=== PATIENT | female | born 1965 | race Caucasian/White ===

== ENCOUNTER 2017-08-09 16:09 | Emergency (ER) | payer OTHER ==
[~2017-08-09] VITALS: Ht 162.6 cm; Wt 56.8 kg
[2017-08-09] MEDS ORDERED: CATAPRES0.1 MG PO (16:20)
[2017-08-09] MEDS ORDERED: SUBUTEX PO (16:21)
[2017-08-09 19:12] VITALS: BP 150/89
== END 2017-08-09 19:14 | disposition home or self-care (01) ==
LOC: EME 16:09
DX: R51 Headache (principal); I10 Essential (primary) hypertension; K75.9 Inflammatory liver disease, unspecified; Z72.0 Tobacco use
CPT/HCPCS: 99281; 99284; J1200; J1885; J2765